=== PATIENT | female | born 1965 | race Caucasian/White ===

== ENCOUNTER 2025-04-30 12:01 | Outpatient (AMB) | payer OTHER, SELFPAY ==
--- NOTE | 2025-04-30 12:02 | A.OFFVIS_ITS ---
Intake Visit Reasons: 6 months PD Accompanied by: nurse (Elizabeth) Allergies No Known Allergies Allergy (Verified 04/30/25 12:03) Medication List - Last Reconciled 04/30/25 by Yuliana Martinez CNP amlodipine 5 mg PO DAILY carbidopa-levodopa 25-100 mg 1.5 tabs at 6am, 10am, 2pm, 6pm, and 1 tab at 10pm orally; entacapone orally five times a day with carbidopa-levodopa; lisinopril 10 mg PO DAILY rasagiline 1 mg PO DAILY zolpidem 10 mg PO BEDTIME PRN HPI Comments Details: She was doing okay. She was living at [facility] and was here with nurse (Elizabeth). She was doing about the same. Tremors have been under control. No difficulty eating or drinking. She was still going for some walks. Balance was okay, no falls. Some periods of agitation that come and go. Anxious at times. Sleep was okay. No recent nightmares. Memory stable, forgetful at times and loses train of thought. Previously, needed help dressing and with hygiene. Restless, has to keep moving and changing positions. Trouble making decisions. She was admitted to [place] for UTI on 10/07/23. CT showed right ovarian cyst. Occasional freezes on the toilet and needs help up with just contact guidance. Occasional assistance to swing her legs into bed. She went off Carbidopa-Levodopa 5 days and was much worse. She reduced and stopped it because she thought she was having side effects of pains and fatigue. Having sleep maintenance problems after 2 am. No shaking and writing and walking have all improved. Feet are a bit fidgety at night. Foot pain relieved by Diclofenac. 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 It's not known for how long she has been doing that before that. When she is standing for a while she likes to hold on to his hands. She sometimes feels lightheaded. She also had some intermittent shaking in the right hand, and the handwriting becomes very shaky and tapers off. She's been noted not to swing her right hand when she walks and sometimes prefers not to drive because the right hand shakes. His posture has become stooped and her gait has altered. She has some difficulty getting out of the chair and has general s lowness. She sometimes drools on a pillow at night, but her speech has not changed. Has not worked since around 2019. 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 [facility] Medical History (Updated 04/30/25 @ 12:09 by Yuliana Martinez CNP) Insomnia Hypertension Parkinson disease Review of Systems Const Denies chills, Denies daytime sleepiness, Reports difficulty sleeping, Denies fatigue, Denies fever(s), Denies frequent falls, Denies headache(s), Denies increased appetite, Denies poor appetite, Denies snoring, Denies weakness, Denies weight gain and Denies weight loss Eyes Denies loss of vision ENT Denies vertigo, Denies dizziness, Denies headache(s) and Denies neck pain Card Denies chest pain at rest, Denies chest pain with activity, Denies syncope, Denies leg edema, Denies palpitations, Denies dyspnea and Denies dyspnea on exertion Resp Denies cough, Denies dyspnea, Denies dyspnea on exertion and Denies snoring GI Denies abdominal pain, Denies constipation, Denies heartburn, Denies diarrhea and Denies nausea Denies urinary frequency, Denies urinary incontinence and Denies urinary urgency Musc Reports abnormal gait (balance difficulty), Denies back pain, Denies myalgias, Denies arthralgias, Denies neck pain, Denies numbness and Denies tingling Neuro Reports abnormal gait (balance difficulty), Denies vertigo, Denies dizziness, Denies syncope, Denies frequent falls, Denies headache(s), Denies lack of coordination, Denies loss of vision, Reports memory loss, Denies numbness, Denies Other visual disturbances, Denies restless legs, Denies seizure-like activity, Denies tingling, Denies paresthesias, Reports tremor(s) and Denies weakness Psych Denies anxiety, Denies depression, Denies auditory hallucinations, Reports memory loss and Denies visual hallucinations Endo Denies fatigue and Denies palpitations Physical Exam Const Other: General Appearance:? normal, in no acute distress. Heart:? S1, S2 normal, no murmurs. Lungs:? clear anteriorly and posteriorly. Musculoskeletal:? normal. Extremities:? no edema. Psych:? alert, oriented, cognitive function intact, cooperative with exam. Neuro Other: Abnormal Neurological Findings:?Decreased facial expression.?There is minimally increased tone with some cogwheeling of the right upper extremity with slowness of rapid alternating movements. She keeps her right hand adducted without an arm swing on the right side. She turns en bloc on walking but does not shuffle. Stooped posture. Mental Status: alert and oriented X 3. Normal attention, orientation, memory, and affect. Cranial Nerves: Pupils are equal, round, and reactive to light. External ocular muscles are intact. Visual watson are full, no ptosis. Face is symmetrical, no facial weakness or droop. Facial sensations are normal. Tongue protrudes in midline. Palate elevates symmetrically. Shoulder shrugging is normal Motor Examination: As above, otherwise normal muscle tone, bulk and strength. No atrophy or fasciculations. No drift of the extended upper extremities. DTR 2+. Plantars are flexor. Straight Leg Raisin degrees. Sensory Exam: Normal light touch, temperature, pinprick, vibration, and joint- position sensations. Rhomberg sign is absent. Coordination: No ataxia. No titubation. [id number], [id number] test, and rapid alternating movements were normal. Gait Exam: As above. Cerebellar Signs: [id number] is okay. Extrapyramidal System: Intermittent resting and postural tremor, right upper extremity 8 Hz frequency low amplitude. Right upper extremity rigidity with reduced facial expressions, mild generalized bradykinesia, no bradyphrenia. Reduced arm swing of the right upper extremity Normal arm swing on the left and stooped posture. Positive retropulsion Speech: Normal. Assessment & Plan Assessment & Plan (1) Parkinson disease: Code(s): G20.A1 - Parkinson's disease without dyskinesia, without mention of fluctuations Category: Medical Qualifiers: Dyskinesia presence: unspecified whether dyskinesia Fluctuating manifestations: unspecified whether manifestations fluctuate Qualified Code(s): G20.A1 - Parkinson's disease without dyskinesia, without mention of fluctuations Plan: Continue carbidopa-levodopa 25-100mg 1.5 tablets at 6am, 10am, 2pm, 6pm, and 1 tablet at 10pm (5 doses/day, 7 tablets/day - #210 for 30 days) Continue entacapone 200mg 1 tablet five times a day with carbidopa-levodopa Continue rasagiline 1mg 1 tablet daily Coding Level of Care Code Est Pt Level 4 (04922) Diagnoses Parkinson's disease, unspecified whether dyskinesia present, unspecified whether manifestations fluctuate G20.A1 Dyskinesia presence: unspecified whether dyskinesia Fluctuating manifestations: unspecified whether manifestations fluctuate
== END 2025-04-30 12:27 | disposition home or self-care (01) ==
LOC: HO.HSM 12:01
PROVIDERS: PCP Internal Medicine; Visit Provider Registered Nurse
DX: G20.A1 Parkinson's disease without dyskinesia, without mention of fluctuations (principal)
CPT/HCPCS: 99214